=== PATIENT | female | born 1985 | race American Indian/Alaskan Native ===

== ENCOUNTER 2019-06-16 17:04 | Emergency (ER) | payer SELFPAY ==
[2019-06-16 17:17] VITALS: BP 145/78
--- NOTE | 2019-06-16 17:20 | Event Note ---
ED Screening Note ED Screening Note: 33 yo female presents with 2 weeks of pelvic cramping and intermittent urinary incontinence. This initial assessment/diagnostic orders/clinical plan/treatment(s) is/are subject to change based on patients health status, clinical progression and re- assessment by fellow clinical providers in the ED. Further treatment and workup at subsequent clinical providers discretion. Patient/guardian urged not to elope from the ED as their condition may be serious if not clinically assessed and managed. Initial orders include: ua upt US
[2019-06-16 19:31] LABS: Bacteria,Urine 1+ /HPF (Negative); Mucus,Urine FEW /HPF; RBC,Urine < 1.0 /HPF (0.0-6.0)
[2019-06-16 19:32] LABS: Bilirubin,Urine NEG (Negative); Blood,Urine NEG (Negative); Color,Urine Yellow (Yellow); Protein,Urine <15 mg/dL mg/dL (Negative)
[2019-06-16 19:38] LABS: HCG Qualitative,Urine Negative (Negative)
--- NOTE | 2019-06-16 21:58 | Emergency Department Report ---
ED Abdominal Pain HPI - General Chief Complaint: Abdominal Pain Stated Complaint: ABD PAIN/DIZZY Time Seen by Provider: 06/16/19 21:45 Source: patient Mode of arrival: Ambulatory Limitations: No Limitations - History of Present Illness Initial Comments: Patient is a 33-year-old female that presents emergency room with lower abdominal pain. Patient states is in her bilateral lower quadrants. Patient also complains of increased urinary frequency. Patient complains of nausea vomiting at times. Patient states she is also having dizziness at times. Patient states her abdominal pains been going on for 2 weeks intermittently but over the last 2 days has become constant. Patient states her pain is worsening. Patient states her abdominal pain is a 10 out of 10. Patient states her pain is better with rest and worse with movement. Patient states right now she is not having any vomiting but she does feel nauseous. MD Complaint: abdominal pain -: Sudden Location: LLQ, RLQ Radiation: none Migration to: no migration Severity: severe Severity scale (0 -10): 10 Quality: stabbing Consistency: constant Improves With: rest Worsens With: movement Associated Symptoms: nausea, vomiting, dysuria. denies: diarrhea, fever, chills, constipation, hematemesis, hematochezia, melena, hematuria, syncope - Related Data LMP (females 10-50): this week Previous Rx's Medication Instructions Recorded Last Taken Type Ibuprofen [Motrin 800 MG tab] 800 mg PO Q6H PRN #30 tablet 05/07/14 Unknown Rx Amoxicillin/K Clav Tab [Augmentin 1 tab PO BID 6 Days tablet 05/08/14 Unknown Rx 875MG] Clindamycin [Clindamycin CAP] 600 mg PO BID 6 Days capsule 05/08/14 Unknown Rx Ibuprofen [Motrin] 600 mg PO Q8H PRN #20 tablet 07/24/18 Unknown Rx Ondansetron [Zofran Odt] 4 mg PO Q6HR PRN #25 tab.rapdis 06/17/19 Unknown Rx Allergies Allergy/AdvReac Type Severity Reaction Status Date / Time venom-honey bee Allergy Swelling Verified 02/16/13 22:08 [bee venom (honey bee)] pollen AdvReac Itching Uncoded 02/16/13 22:08 ED Review of Systems ROS: Stated complaint: ABD PAIN/DIZZY/FEET SWELLING Other details as noted in HPI Constitutional: denies: chills, fever Eyes: denies: eye pain, eye discharge, vision change ENT: denies: ear pain, throat pain Respiratory: denies: cough, shortness of breath, wheezing Cardiovascular: denies: chest pain, palpitations Endocrine: no symptoms reported Gastrointestinal: abdominal pain, nausea, vomiting. denies: diarrhea Genitourinary: urgency, dysuria, frequency. denies: discharge Musculoskeletal: denies: back pain, joint swelling, arthralgia Skin: denies: rash, lesions Neurological: denies: headache, weakness, paresthesias Psychiatric: denies: anxiety, depression Hematological/Lymphatic: denies: easy bleeding, easy bruising ED Past Medical Hx - Past Medical History Previous Medical History?: Yes Hx Hypertension: Yes Hx Congestive Heart Failure: No Hx Diabetes: No Hx Deep Vein Thrombosis: No Hx Renal Disease: No Hx Sickle Cell Disease: No Hx Seizures: No Hx Asthma: Yes Hx COPD: No Hx HIV: No - Surgical History Past Surgical History?: No - Family History Family history: no significant - Social History Smoking Status: Current Every Day Smoker Substance Use Type: None - Medications Home Medications: Home Medications Medication Instructions Recorded Confirmed Last Taken Type Ibuprofen [Motrin 800 MG tab] 800 mg PO Q6H PRN #30 tablet 05/07/14 Unknown Rx Amoxicillin/K Clav Tab [Augmentin 1 tab PO BID 6 Days tablet 05/08/14 Unknown Rx 875MG] Clindamycin [Clindamycin CAP] 600 mg PO BID 6 Days capsule 05/08/14 Unknown Rx Ibuprofen [Motrin] 600 mg PO Q8H PRN #20 tablet 07/24/18 Unknown Rx Ondansetron [Zofran Odt] 4 mg PO Q6HR PRN #25 tab.rapdis 06/17/19 Unknown Rx ED Physical Exam - General Limitations: No Limitations General appearance: alert, in no apparent distress - Head Head exam: Present: atraumatic, normocephalic - Eye Eye exam: Present: normal appearance - ENT ENT exam: Present: mucous membranes moist - Neck Neck exam: Present: normal inspection - Respiratory Respiratory exam: Present: normal lung sounds bilaterally. Absent: respiratory distress - Cardiovascular Cardiovascular Exam: Present: regular rate, normal rhythm. Absent: systolic murmur, diastolic murmur, rubs, gallop - GI/Abdominal GI/Abdominal exam: Present: soft, tenderness (Bilateral lower quadrant tenderness.), normal bowel sounds - Extremities Exam Extremities exam: Present: normal inspection - Back Exam Back exam: Present: normal inspection - Neurological Exam Neurological exam: Present: alert, oriented X3 - Psychiatric Psychiatric exam: Present: normal affect, normal mood - Skin Skin exam: Present: warm, dry, intact, normal color. Absent: rash ED Course Vital Signs 06/16/19 17:14 Temperature 97.9 F Pulse Rate 67 Respiratory 16 Rate Blood Pressure 145/78 O2 Sat by Pulse 96 Oximetry - Reevaluation(s) Reevaluation #1: I discussed all results and clinical findings with patient. I discussed plan of care with patient. Patient agrees with plan of care. Patient is stable for discharge. Patient will be discharged home. Patient given discharge instructions. Patient voiced understanding of discharge instructions. 06/17/19 00:40 ED Medical Decision Making - Lab Data Result diagrams: 06/16/19 22:27 06/16/19 22:27 - Radiology Data Radiology results: report reviewed, image reviewed Pelvic ultrasound complete INDICATION: Pelvic pain FINDINGS: The uterus measures 6.9 cm. Endometrial stripe measures 9 mm. The ovaries are normal in appearance. The left ovary measures 2.3 cm in length and the right ovary measures 2.4 cm. There are no adnexal masses. There is no free fluid. IMPRESSION: Pelvic ultrasound is within normal limits. CT abdomen pelvis w con INDICATION: Lower abdominal pain. TECHNIQUE: All CT scans at this location are performed using the following dose modulation technique: Automated exposure control. Helical slices were obtained through the abdomen and pelvis. 100 cc of Omnipaque 300 is administered. COMPARISON: None available. FINDINGS: Abdomen: No acute abnormality is seen in the lower chest. The liver, spleen, pancreas, adrenal glands, and kidneys show no acute abnormality. The gallbladder is grossly unremarkable. There is no obstruction, inflammation, or free air. There are no abnormal fluid collections area Pelvis: The appendix is unremarkable. There is no inflammatory change. There is no adenopathy. On review of bone windows, no acute osseous abnormalities are seen. IMPRESSION: 1. There is no obstruction, inflammation, or free air. There are no abnormal collections. No acute abnormality is seen in the abdomen or pelvis. - Medical Decision Making Patient is a 33-year-old female that presents emergency room for multiple symptoms. Patient complains of nausea vomiting at times, dizziness, abdominal pain, dysuria, urinary frequency that have been going on for 2 weeks. Patient did not have any nausea vomiting in the ER. Patient did not have any dizziness in the ER. Patient's labs unremarkable. Patient's CT of the abdomen negative for acute findings. Patient's pelvic ultrasound negative for acute findings. Patient stable for discharge. Patient be discharged home. Patient require fu rther evaluation as an outpatient. - Differential Diagnosis Abdominal pain, UTI, dysuria, urinary frequency, dizziness, nausea vomiting Critical care attestation.: If time is entered above; I have spent that time in minutes in the direct care of this critically ill patient, excluding procedure time. ED Disposition Clinical Impression: Dizziness, Urinary frequency Abdominal pain Qualifiers: Abdominal location: lower abdomen, unspecified Qualified Code(s): R10.30 - Lower abdominal pain, unspecified Disposition: TO HOME OR SELFCARE Is pt being admited?: No Does the pt Need Aspirin: No Condition: Stable Instructions: Abdominal Pain (ED), Dysuria (ED) Additional Instructions: Patient to follow-up with primary care in 2 to 3 days. Patient to follow-up with the urologist in 2 to 3 days. 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 Patient to eat a brat diet. Patient to rest. Patient to increase water. Patient to avoid heavy meals. Patient to take Tylenol or ibuprofen as needed for pain. Prescriptions: Ondansetron [Zofran Odt] 4 mg PO Q6HR PRN #25 tab.rapdis PRN Reason: Nausea And Vomiting Referrals: [facility] MD MAGGIE [Primary Care Provider] - 2-3 Days FERNIE CUBA MD [Staff Physician] - 2-3 Days MARK COHN MD [Staff Physician] - 2-3 Days Time of Disposition: 00:45
[2019-06-16] MEDS ORDERED: HYDROmorphone 1 MG/1 ML INJ IV ONE (22:45)
[2019-06-16 23:14] LABS: Hematocrit 38.5 % (30.3-42.9); Hemoglobin 12.2 gm/dl (10.1-14.3); Mean Corpuscular HGB Conc 32 % (30-34); Mean Corpuscular Volume 82 fl (79-97); Platelet Count 293 K/mm3 (140-440); Red Cell Distribution Width 15.1 % (13.2-15.2)
--- NOTE | 2019-06-16 23:23 | Ultrasound Report ---
Pelvic ultrasound complete INDICATION: Pelvic pain FINDINGS: The uterus measures 6.9 cm. Endometrial stripe measures 9 mm. The ovaries are normal in appearance. The left ovary measures 2.3 cm in length and the right ovary measures 2.4 cm. There are no adnexal ma sses. There is no free fluid. IMPRESSION: Pelvic ultrasound is within normal limits. Signer Name: Herb Leyva MD Signed: 06/16/2019 11:18 PM Workstation Name: [id number]
[2019-06-16 23:37] LABS: Alanine Aminotransferase 16 units/L (7-56); Albumin 4.2 g/dL (3.9-5); BUN/Creatinine Ratio 14; Blood Urea Nitrogen 10 mg/dL (7-17); Calcium 8.7 mg/dL (8.4-10.2); Hemolysis Index 3
--- NOTE | 2019-06-16 23:45 | Cat Scan Report ---
CT abdomen pelvis w con INDICATION: Lower abdominal pain. TECHNIQUE: All CT scans at this location are performed using the following dose modulation technique: Automated exposure control. Helical slices were obtained through the abdomen and pelvis. 100 cc of Omnipaque 30 0 is administered. COMPARISON: None available. FINDINGS: Abdomen: No acute abnormality is seen in the lower chest. The liver, spleen, pancreas, adrenal glands , and kidneys show no acute abnormality. The gallbladder is grossly unremarkable. There is no obstruc tion, inflammation, or free air. There are no abnormal fluid collections area Pelvis: The appendix is unremarkable. There is no inflammatory change. There is no adenopathy. On review of bone windows, no acute osseous abnormalities are seen. IMPRESSION: 1. There is no obstruction, inflammation, or free air. There are no abnormal collections. No acute ab normality is seen in the abdomen or pelvis. Signer Name: Herb Leyva MD Signed: 06/16/2019 11:40 PM Workstation Name: [id number]
== END 2019-06-17 01:10 | disposition home or self-care (01) ==
LOC: ED 17:04
DX: R10.31 Right lower quadrant pain (principal); R10.32 Left lower quadrant pain; R42 Dizziness and giddiness; R35.0 Frequency of micturition; I10 Essential (primary) hypertension; J45.909 Unspecified asthma, uncomplicated; F17.200 Nicotine dependence, unspecified, uncomplicated
CPT/HCPCS: 36415; 74177; 76830; 80053; 81001; 81025; 85027; 96374; 99284; J1170; Q9967

== ENCOUNTER 2020-11-21 03:40 | Emergency (ER) | payer OTHER | END 2020-11-21 03:45 | disposition left against medical advice (07) | LOC: ED 03:40 | DX: G43.909 Migraine, unspecified, not intractable, without status migrainosus (principal); Z53.21 Procedure and treatment not carried out due to patient leaving prior to being seen by health care provider ==

== ENCOUNTER 2020-12-26 18:44 | Emergency (ER) | payer SELFPAY ==
--- NOTE | 2020-12-26 19:00 | Event Note ---
ED Screening Note Date of service: 12/26/20 Time: 18:58 ED Screening Note: 35-year-old female patient with history of asthma and BMI > 53 presents emergency department with complaints of chest pain, diaphoresis, and generalized weakness starting today. Patient states today she was so weak that she was unable to ambulate to her car in order to drive to work. Last menstrual cycle was approximately 3 months ago. Hypertensive and diaphoretic in triage. General: Awake, appropriately interactive. Appears uncomfortable. Neck: Supple. Full range of motion intact. Cardiovascular: Normal peripheral perfusion. Pulmonary: No respiratory distress. Patient is speaking normally without use of accessory muscles. Skin: No apparent rashes or lesions. Neurological: No facial asymmetry. Speech is clear. Follows commands. Patient is alert and oriented. Musculoskeletal: Moves all four extremities spontaneously with normal range of motion. Psych: Cooperative. Appropriate mood and affect. I have greeted and performed a focused rapid initial assessment of this patient. A comprehensive ED assessment and evaluation of the patient, analysis of all test results, and completion of the medical decision-making process will be conducted by additional ED providers. This initial assessment/diagnostic orders/clinical plan/treatment(s) is/are subject to change based on patients health status, clinical progression and re-assessment. Further treatment and workup at subsequent clinical provider's discretion. Patient/guardian urged not to elope from the ED as their condition may be serious if not clinically assessed and managed.
[2020-12-26 19:19] LABS: Basophils # (Auto) 0.1 K/mm3 (0.0-0.1); Basophils % (Auto) 0.8 % (0.0-1.8); Eosinophils # (Auto) 0.2 K/mm3 (0.0-0.4); Eosinophils % (Auto) 2.2 % (0.0-4.3); Hematocrit 37.4 % (30.3-42.9); Hemoglobin 12.2 gm/dl (10.1-14.3); Lymphocytes % (Auto) 40.7 % (13.4-35.0); Mean Corpuscular HGB Conc 33 % (30-34); Mean Corpuscular Volume 82 fl (79-97); Monocytes # (Auto) 0.3 K/mm3 (0.0-0.8); Monocytes % (Auto) 4.5 % (0.0-7.3); Platelet Count 285 K/mm3 (140-440); Red Blood Count 4.59 M/mm3 (3.65-5.03); Red Cell Distribution Width 16.5 % (13.2-15.2)
[2020-12-26 19:42] LABS: Alanine Aminotransferase 22 units/L (7-56); Albumin 3.9 g/dL (3.9-5); Blood Urea Nitrogen 9 mg/dL (7-17); Calcium 8.8 mg/dL (8.4-10.2); Hemolysis Index 14
[2020-12-26 20:01] LABS: BUN/Creatinine Ratio 13
--- NOTE | 2020-12-26 20:11 | XRay Report ---
CHEST 2 VIEWS INDICATION / CLINICAL INFORMATION: chest pain. Hot flashes and shortness of breath. Weakness. COMPARISON: 01/20/20 FINDINGS: SUPPORT DEVICES: None. HEART / MEDIASTINUM: No significant abnormality. LUNGS / PLEURA: No significant pulmonary or pleural abnormality. No pneumothorax. ADDITIONAL FINDINGS: No significant additional findings. IMPRESSION: 1. No acute findings. Signer Name: Jenn Ordonez MD Signed: 12/26/2020 8:06 PM Workstation Name: [id number]
--- NOTE | 2020-12-26 20:11 | XRay Report ---
THORACIC SPINE 2 VIEWS INDICATION / CLINICAL INFORMATION: back pain. Weakness. COMPARISON: None available. FINDINGS: VERTEBRAE: No acute fracture. No significant malalignment. DISC SPACES / FACET JOINTS:No significant abnormality. PARASPINAL SOFT TISSUES:No significant abnormality. ADDITIONAL FINDINGS: None. Signer Name: Jenn Ordonez MD Signed: 12/26/2020 8:07 PM Workstation Name: [id number]
--- NOTE | 2020-12-26 20:12 | XRay Report ---
LUMBAR SPINE 2 VIEWS INDICATION / CLINICAL INFORMATION: back pain. Weakness. COMPARISON: None available. FINDINGS: VERTEBRAE: No acute fracture. No significant malalignment. DISC SPACES / FACET JOINTS:No significant abnormality. PARASPINAL SOFT TISSUES:No significant abnormality. ADDITIONAL FINDINGS: None. Signer Name: Jenn Ordonez MD Signed: 12/26/2020 8:07 PM Workstation Name: [id number]
[2020-12-27] MEDS ORDERED: ACETAMINOPHEN 500 MG TAB ONE (01:24)
[2020-12-27] MEDS ORDERED: ACETAMINOPHEN 500 MG TAB PO ONE (01:26)
[2020-12-27] MEDS ORDERED: ONDANSETRON 4 MG/2 ML INJ IV ONE (05:14)
[2020-12-27] MEDS ORDERED: MORPHINE 4 MG/1 ML INJ IV ONE (05:14)
--- NOTE | 2020-12-27 05:18 | Emergency Department Report ---
Blank Doc - Documentation Documentation: This patient was seen through triage by the midlevel provider during . Patient presents with multiple complaints: 1. Generalized chest pain and shortness of breath that started just prior to presentation. 2. Exacerbation of upper and lower back pain that has been going on for the past few weeks 3. Right upper extremity numbness, weakness, and pain. 4. Weakness to the point where the patient felt like she had difficulty getting out to her car earlier today so that she can go to work. Patient presents with very elevated blood pressure, most recently seen at 204/126. She denies any history of hypertension and is not on any antihypertensive medication. Patient's labs have thus far been unremarkable including CBC, metabolic panel, and the patient is not . EKG does not show any ST elevation OK. There are some T wave inversions to the anterolateral and inferior leads. These T wave inversions appear unchanged from previous. Patient has had a chest x-ray that does not show any pneumonia, pleural effusions, pneumothorax, widened mediastinum, or any other acute process. X-rays were done, through triage, of the lumbar and thoracic spine, that did not show any fracture, subluxation, or any acute process. Given the patient's complaints, I have ordered a troponin level and a TSH. The patient will have a CT scan of the head without contrast. An IV will be placed for pain control and, if necessary, antihypertensive medication.
--- NOTE | 2020-12-27 05:44 | Cat Scan Report ---
CT head without contrast INDICATION : right sided weakness. TECHNIQUE: Axial imaging performed from the skull apex through the skull base without the use of con trast. All CT scans at this location are performed using CT dose reduction for ALARA by means of aut omated exposure control. COMPARISON: None FINDINGS: Parenchyma: No mass, stroke or hemorrhage. Ventricles: Ventricles are normal in size and appear symmetric. Soft tissues: Soft tissues including the orbits appear normal. Bones: No acute osseous abnormality. Sinuses: Sinuses and mastoid air cells are clear. IMPRESSION: No acute abnormality. Signer Name: Elier Krueger MD Signed: 12/27/2020 5:40 AM Workstation Name: [id number]
[2020-12-27 06:33] VITALS: BP 194/90
--- NOTE | 2020-12-27 06:48 | Emergency Department Report ---
ED General Adult HPI - General Chief complaint: Dyspnea/Respdistress Stated complaint: HOT SWEATS/SOB/WEAK Time Seen by Provider: 12/27/20 06:05 Source: patient Mode of arrival: Ambulatory Limitations: No Limitations - History of Present Illness Initial comments: 35-year-old female, history of asthma, anxiety, presents to ED with right sided pain. Patient states she works in 2 [employer]houses. She is right-handed. Patient states over the last 2 weeks she has been having sharp, crampy, muscle spasms in the right side of her upper body, including her right upper and lower back, and right upper quadrant area. Patient initially states that she has numbness on the right side of her anterior upper body, which includes her right arm right breast, right side of her abdomen. However, she reports that she has sensation to the right posterior upper body. Patient also initially states that she is unable to move her right arm. Upon further clarification, patient states that does not want to move her arm because of the pain. Patient initially reported that she had to crawl to her car because of weakness. However, patient clarifies that she was unable to stand upright because of the muscle spasms. Patient denies any headache or neck pain. She denies any fever. Initial triage note states that patient had a complaint of hot flashes and shortness of breath however patient states that she believes this was due to her having an anxiety attack. -: week(s) (2) Location: chest, back, right, upper extremity Severity scale (0 -10): 10 Quality: sharp, other (Muscle spasm) Consistency: intermittent Improves with: none Worsens with: none Associated Symptoms: chest pain, shortness of breath, weakness. denies: cough, fever/chills, nausea/vomiting - Related Data Previous Rx's Medication Instructions Recorded Last Taken Type Ondansetron [Zofran ODT TAB] 4 mg PO Q6HR PRN #25 tab.rapdis 06/17/19 Unknown Rx Acetaminophen [Acetaminophen TAB] 650 mg PO Q4H PRN tablet 01/22/20 Unknown Rx Ipratropium/Albuterol Sulfate 1 ampul IH Q6HRT #120 ampul.neb 01/22/20 Unknown Rx [DUONEB *Not for PRN Use*] Prednisone [predniSONE 10 mg 10 mg PO .TAPER #1 tab.ds.pk 01/22/20 Unknown Rx (6-Day Pack, 21 Tabs)] Naproxen [Naprosyn] 500 mg PO BID #20 tablet 12/27/20 Unknown Rx amLODIPine 5 mg PO QDAY #30 tablet 12/27/20 Unknown Rx hydrALAZINE [Apresoline TAB] 50 mg PO Q8HR #90 tablet 12/27/20 Unknown Rx methOCARBAMOL [Robaxin TAB] 500 mg PO Q8HR PRN #20 tablet 12/27/20 Unknown Rx traMADoL [Ultram] 50 mg PO Q6HR PRN #7 tablet 12/27/20 Unknown Rx Allergies Allergy/AdvReac Type Severity Reaction Status Date / Time venom-honey bee Allergy Swelling Verified 01/20/20 14:25 [bee venom (honey bee)] pollen AdvReac Itching Uncoded 02/16/13 22:08 ED Review of Systems ROS: Stated complaint: HOT SWEATS/SOB/WEAK Other details as noted in HPI Comment: All other systems reviewed and negative Constitutional: denies: chills, fever Respiratory: shortness of breath. denies: cough Cardiovascular: chest pain Gastrointestinal: denies: nausea, vomiting Musculoskeletal: as per HPI Neurological: denies: headache ED Past Medical Hx - Past Medical History Previous Medical History?: Yes Hx Hypertension: Yes Hx Congestive Heart Failure: No Hx Diabetes: No Hx Deep Vein Thrombosis: No Hx Renal Disease: No Hx Sickle Cell Disease: No Hx Seizures: No Hx Asthma: Yes Hx COPD: No Hx HIV: No - Surgical History Past Surgical History?: No - Social History Smoking Status: Never Smoker - Medications Home Medications: Home Medications Medication Instructions Recorded Confirmed Last Taken Type Ondansetron [Zofran ODT TAB] 4 mg PO Q6HR PRN #25 tab.rapdis 06/17/19 Unknown Rx Acetaminophen [Acetaminophen TAB] 650 mg PO Q4H PRN tablet 01/22/20 Unknown Rx Ipratropium/Albuterol Sulfate 1 ampul IH Q6HRT #120 ampul.neb 01/22/20 Unknown Rx [DUONEB *Not for PRN Use*] Prednisone [predniSONE 10 mg 10 mg PO .TAPER #1 tab.ds.pk 01/22/20 Unknown Rx (6-Day Pack, 21 Tabs)] Naproxen [Naprosyn] 500 mg PO BID #20 tablet 12/27/20 Unknown Rx amLODIPine 5 mg PO QDAY #30 tablet 12/27/20 Unknown Rx hydrALAZINE [Apresoline TAB] 50 mg PO Q8HR #90 tablet 12/27/20 Unknown Rx methOCARBAMOL [Robaxin TAB] 500 mg PO Q8HR PRN #20 tablet 12/27/20 Unknown Rx traMADoL [Ultram] 50 mg PO Q6HR PRN #7 tablet 12/27/20 Unknown Rx ED Physical Exam - General Limitations: No Limitations General appearance: alert, in no apparent distress, obese - Head Head exam: Present: atraumatic, normocephalic - Eye Eye exam: Present: normal appearance, EOMI - ENT ENT exam: Present: mucous membranes moist - Neck Neck exam: Present: normal inspection, full ROM. Absent: tenderness, meningismus - Respiratory Respiratory exam: Present: normal lung sounds bilaterally. Absent: respiratory distress - Cardiovascular Cardiovascular Exam: Present: regular rate, normal rhythm - GI/Abdominal GI/Abdominal exam: Present: soft. 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, pt able to extend and abduct right arm away from body, pt able to hold arm above head if I fully abduct the arm;pt won't fully abduct secondary to pain) - Psychiatric Psychiatric exam: Present: normal affect, normal mood - Skin Skin exam: Present: warm, dry, intact, normal color ED Course Vital Signs 12/26/20 12/27/20 12/27/20 18:52 05:08 05:10 Temperature 98.3 F 98.2 F Pulse Rate 86 64 Respiratory 20 19 Rate Blood Pressure 194/116 Blood Pressure 209/124 [Left] O2 Sat by Pulse 98 96 99 Oximetry 12/27/20 12/27/20 12/27/20 05:36 06:01 06:06 Temperature Pulse Rate Respiratory 19 16 Rate Blood Pressure 194/90 Blood Pressure [Left] O2 Sat by Pulse 96 Oximetry ED Medical Decision Making - Lab Data Result diagrams: 12/26/20 19:02 12/26/20 19:02 - Radiology Data Radiology results: report reviewed, image reviewed - Medical Decision Making 35-year-old female presents to ED with right-sided pain. Work-up is unremarkable, including imaging studies and labs. Patient has tenderness to the right chest wall and right shoulder. Patient is, in fact, able to move her right arm, and strength is 5/5 in all extremities. Patient reports feeling better after receiving morphine. Patient will be given prescription for anti-inflammatory, pain medication, and muscle relaxer. Blood pressure elevated here in ED. Patient denies any history of hypertension, however, during an admission last year, record shows that patient was diagnosed with uncontrolled hypertension and given prescriptions for amlodipine and hydralazine. Patient states she does not remember this. Will give refill on these meds. Patient also advised about weight loss and recommendations to obtain COVID-19 vaccine. - Differential Diagnosis anxiety, chest wall pain, rotator cuff tendinitis, radiculopathy Critical care attestation.: If time is entered above; I have spent that time in minutes in the direct care of this critically ill patient, excluding procedure time. ED Disposition Clinical Impression: Radiculopathy affecting upper extremity, Muscle spasm, Uncontrolled hypertension Disposition: 01 HOME / SELF CARE / HOMELESS Is pt being admited?: No Condition: Stable Instructions: Muscle Cramps and Spasms, [id number], Vegan Diet, Radicular Pain, Managing Your Hypertension, Hypertension (ED) Prescriptions: amLODIPine 5 mg PO QDAY #30 tablet hydrALAZINE [Apresoline TAB] 50 mg PO Q8HR #90 tablet Naproxen [Naprosyn] 500 mg PO BID #20 tablet methOCARBAMOL [Robaxin TAB] 500 mg PO Q8HR PRN #20 tablet PRN Reason: Muscle Spasm traMADoL [Ultram] 50 mg PO Q6HR PRN #7 tablet PRN Reason: Pain Referrals: LEISA MORALES MD [Primary Care Provider] - 3-5 Days KIKE SETHI II, MD [Staff Physician] - 3-5 Days KELSIE MENDOZA MD [Staff Physician] - 3-5 Days Time of Disposition: 06:59
--- NOTE | 2020-12-30 08:47 | Electrocardiograph Report ---
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
== END 2020-12-27 07:11 | disposition home or self-care (01) ==
LOC: ED 18:44
DX: M54.10 Radiculopathy, site unspecified (principal); M62.838 Other muscle spasm; I10 Essential (primary) hypertension; J45.909 Unspecified asthma, uncomplicated; Z79.899 Other long term (current) drug therapy; Z88.8 Allergy status to other drugs, medicaments and biological substances
CPT/HCPCS: 36415; 70450; 71046; 72070; 72100; 80053; 84443; 84484; 84703; 85025; 93005; 96374; 96375; 99284; J2270; J2405

== ENCOUNTER 2021-09-15 21:09 | Emergency (ER) | payer SELFPAY ==
[2021-09-15 21:15] VITALS: BP 192/99
== END 2021-09-15 22:45 | disposition left against medical advice (07) ==
LOC: ED 21:09
DX: R06.02 Shortness of breath (principal); Z53.21 Procedure and treatment not carried out due to patient leaving prior to being seen by health care provider